=== PATIENT | male | born 1985 | race Two or more races ===

== ENCOUNTER 2021-01-12 02:00 | Emergency (ER) | payer OTHER ==
[~2021-01-12] VITALS: Ht 188 cm; Wt 88.5 kg
[2021-01-12 02:31] LABS: Basophils # (auto) 0.1 10 ^3/uL (0-0.2); Basophils % (auto) 0.7 % (0.0-2.0); Eosinophils # (auto) 0.1 10 ^3/uL (0-0.8); Eosinophils % (auto) 0.9 % (0.0-7.0); Hemoglobin 16.2 g/dL (13.5-17.5); Lymphocytes # (auto) 1.4 10 ^3/uL (0.4-5.4); Lymphocytes % (auto) 16.1 % (10.0-50.0); Mean Corpuscular Hemoglobin 30.6 pg (28.0-32.0); Mean Corpuscular Hgb Conc. 35.3 g/dL (32.0-36.0); Mean Corpuscular Volume 86.8 fL (80.0-100.0); Monocytes # (auto) 0.5 10 ^3/uL (0-1.3); Monocytes % (auto) 6.4 % (0.0-12.0); Neutrophils # (auto) 6.5 10 ^3/uL (1.6-8.6); Neutrophils % (auto) 75.9 % (37.0-80.0); Nucleated Red Blood Cells % 0.2 %; Platelet Count (auto) 242 10^3/uL (140-450); Red Cell Distribution Width 12.9 % (11.8-14.3); White Blood Cell 8.5 10^3/uL (4.4-10.8)
[2021-01-12 02:46] LABS: Albumin 4.1 g/dL (3.4-5.0); BUN/Creatinine Ratio 19.8; Calcium 9.6 mg/dL (8.5-10.1); Potassium 4.2 mmol/L (3.5-5.1)
[2021-01-12 02:49] LABS: Bilirubin, Total 0.6 mg/dL (0.2-1.0)
[2021-01-12 03:00] VITALS: BP 107/65
[2021-01-12] MEDS ORDERED: SODIUM CHLORIDE 0.9% 1,000 ML IV ONE (03:15)
[2021-01-12] MEDS ORDERED: CEFTRIAXONE SODIUM 2 GM in D5W 5% 50 ML IV ONE (03:15)
[2021-01-12] MEDS ORDERED: diphenhdrAMINE HCL 50 MG/1 ML VL IV ONE (03:15)
[2021-01-12] MEDS ORDERED: methylPREDNISolone SOD SUCC 125 MG/2 ML VL IV ONE (03:15)
[2021-01-12 03:16] LABS: Urine Bacteria NONE SEEN /hpf (None Seen); Urine Blood Negative /uL (Negative); Urine Mucus FEW (None Seen); Urine Specific Gravity 1.033 (1.001-1.035); Urine WBC 2 /hpf (0 - 3)
[2021-01-12] MEDS ORDERED: cefTRIAXone 1GM/50ML D5W 50 ML IV ONE ×2 (03:30)
== END 2021-01-12 04:50 | disposition home or self-care (01) ==
LOC: ER 02:00
DX: S33.5XXA Sprain of ligaments of lumbar spine, initial encounter (principal); J32.9 Chronic sinusitis, unspecified; F41.9 Anxiety disorder, unspecified; R51.9 Headache, unspecified; X58.XXXA Exposure to other specified factors, initial encounter; Y93.89 Activity, other specified; Y92.89 Other specified places as the place of occurrence of the external cause; Y99.8 Other external cause status
CPT/HCPCS: 36415; 70486; 80053; 81001; 85025; 96365; 96375; 99284; J0696; J1200; J2930; J7060